=== PATIENT | male | born 1945 | race Caucasian/White ===

== ENCOUNTER → 2020-07-03 | Outpatient (CLI) | payer MEDICARE ==
[2020-07-03 11:02] LABS: African American GFR (CKD) >90 (>60 ml/min/1.73 sqM); Anion Gap 6 mmol/L; Basophils # (A) 0.1 k/uL (0-0.2); Basophils % (A) 1 %; Blood Urea Nitrogen 14 mg/dL (9-20); Calcium 9.1 mg/dL (8.4-10.2); Carbon Dioxide 27 mmol/L (22-30); Chloride 105 mmol/L (98-107); Eosinophils # (A) 0.7 k/uL (0-0.7); Eosinophils % (A) 6 %; Glucose 100 mg/dL (74-99); HCT 44.5 % (39.0-53.0); HGB 14.1 gm/dL (13.0-17.5); Lymphocytes # (A) 2.2 k/uL (1.0-4.8); Lymphocytes % (A) 19 %; MCH 29.4 pg (25.0-35.0); MCHC 31.6 g/dL (31.0-37.0); Mean Platelet Volume 8.6; Monocytes # (A) 0.9 k/uL (0-1.0); Monocytes % (A) 7 %; Neutrophils # (A) 7.7 k/uL (1.3-7.7); Neutrophils % (A) 65 %; Non-African American GFR(CKD) >90 (>60 ml/min/1.73 sqM); Platelet Count 285 k/uL (150-450); Potassium 4.2 mmol/L (3.5-5.1); RBC 4.79 m/uL (4.30-5.90); RDW 13.2 % (11.5-15.5); Sodium 138 mmol/L (137-145); WBC 11.8 k/uL (3.8-10.6)
== END | disposition home or self-care (01) ==
LOC: LABPAT 09:53
PROVIDERS: ATTEND Urology
DX: Z01.818 Encounter for other preprocedural examination (principal); E11.9 Type 2 diabetes mellitus without complications; C61 Malignant neoplasm of prostate
CPT/HCPCS: 36415; 80048; 85025

== ENCOUNTER → 2020-07-10 | Day surgery (SDC) | payer MEDICARE ==
[2020-07-04 12:33] VITALS: BMI 35.9
--- NOTE | 2020-07-07 16:01 | P.GSHP ---
History of Present Illness H&P Date: 07/07/20 Chief Complaint: Prostate cancer The patient is a 74-year-old white male whose PSA level in April 2020 was 5.2, down from 6.0 in September 2019. JASON revealed prominence of the right apical region. He underwent a prostate ultrasound, revealing a prostate volume of 43.5 mL. Biopsies of the right apex and right lateral apex showed [place] 7 (3+4) adenocarcinoma. The remaining biopsies were negative. The Prolaris score was 5.1, high for someone with favorable intermediate risk disease. I had a lengthy discussion with the patient and his regarding alternative treatment options, and he has elected to be treated with IMRT. We discussed the fact that androgen deprivation therapy (ADT) can improve cure rates, but in view of the fact that he has coronary artery disease and dementia he has chosen to precede with IMRT without ADT. - Gastrointestinal Gastrointestinal: Reports indigestion - Genitourinary (Male) Genitourinary: Reports urinary frequency - Neurological Neurological: Reports memory loss Past Medical History Past Medical History: Coronary Artery Disease (CAD), Cancer, COPD, Dementia, Diabetes Mellitus, GERD/Reflux, GI Bleed, Hypertension, Osteoarthritis (OA) Additional Past Medical History / Comment(s): hx of stomach ulcers with severe GI bleed, constipation, prostate cancer. Pt's states he loses his train of thought at times & mixes up his words. 06/26/20 tractor injury to right ankle with fx -surgery to clean and close wound; he is wearing a walking boot. History of Any Multi-Drug Resistant Organisms: None Reported Past Surgical History: Heart Catheterization With Stent Additional Past Surgical History / Comment(s): angioplasty, cardiac stent over 15 yrs ago ([facility]), Right Ankle injury with fx 06/26/20 and went to surgery to clean and close wound. Past Anesthesia/Blood Transfusion Reactions: No Reported Reaction Date of Last Stent Placement:: unk Past Psychological History: No Psychological Hx Reported Smoking Status: Former smoker Past Alcohol Use History: None Reported Additional Past Alcohol Use History / Comment(s): quit smoking age 40., smoked less than a ppd. Past Drug Use History: None Reported - Past Family History Father Family Medical History: Cancer Additional Family Medical History / Comment(s): lung cancer Brother(s) Family Medical History: Cancer Additional Family Medical History / Comment(s): 1 brother had prostate cancer. 2 nd brother unknown type of cancer Medications and Allergies Home Medications Medication Instructions Recorded Confirmed Type Atorvastatin [Lipitor] 20 mg PO DAILY 05/29/16 07/04/20 History Isosorbide Mononitrate ER [Imdur] 60 mg PO DAILY 05/29/16 07/04/20 History Metoprolol Tartrate [Lopressor] 50 mg PO DAILY 05/29/16 07/04/20 History Sucralfate [Carafate] 1 gm PO ACHS 05/29/16 07/04/20 History Lisinopril [Zestril] 10 mg PO DAILY 07/04/20 07/04/20 History Nitroglycerin Sl Tabs [Nitrostat] 0.4 mg SUBLINGUAL Q5M PRN 07/04/20 07/04/20 History Omeprazole/Sodium Bicarbonate 1 each PO DAILY 07/04/20 07/04/20 History [Zegerid 20 mg Capsule] Psyllium Husk [Metamucil] 2 cap PO DAILY 07/04/20 07/04/20 History glipiZIDE [Glucotrol] 5 mg PO AC-BRKFST 07/04/20 07/04/20 History Allergies Allergy/AdvReac Type Severity Reaction Status Date / Time clopidogrel [From Plavix] AdvReac Unknown HX Verified 07/04/20 12:29 BLEEDING ULCERS NSAIDS (Non-Steroidal AdvReac HX Verified 07/04/20 12:29 Anti-Inflamma BLEEDING ULCERS-DOES NOT TAKE. Surgical - Exam - General well developed, well nourished, no distress - Respiratory normal respiratory effort - Abdomen Abdomen: soft, non tender, no guarding, no rigid, no rebound - Genitourinary normal penis with no external lesions, testicles non-tender - Rectum Rectum: normal sphincter tone, no masses, other (Prominent right prostatic apex) - Psychiatric oriented to time, oriented to person, oriented to place, speech is normal, memory intact Assessment and Plan (1) Malignant neoplasm of prostate Status: Acute Code(s): C61 - MALIGNANT NEOPLASM OF PROSTATE SNOMED Code(s): 749601047 Plan: The patient has elected to undergo SpaceOar implant on 07/10/2020. The procedure has been reviewed in detail with the patient and his . They understand that the rationale for this is to create separation between the prostate and rectum, thus reducing the risk of radiation proctitis. The material begins to breakdown 12-13 weeks following implant, and is reabsorbed by the body. Risks include anesthesia, bleeding, infection, and perineal discomfort. He understands that if the rectal wall is perforated the procedure will need to be aborted.
[~2020-07-10] MED LIST: DEXAMETHASONE SOD PHOSPHATE 10 MG/ML 1 ML VIAL IV ONE; HYDROmorphone 0.5 MG/0.5 ML SYRINGE IVP PRN; LACTATED RINGERS 1,000 ML IV ONE; LACTATED RINGERS 1,000 ML IV SCH; LIDOCAINE 1% (10MG/ML) FOR IV START INTRADERMA PRN; LIDOCAINE 2% (PF) 20 MG/ML 5 ML VIAL SQ ONE; LIDOCAINE 2% INJ 20 MG/ML SQ ONE; MIDAZOLAM 2 MG/2 ML VIAL ONE; ONDANSETRON 4 MG/2 ML VIAL IVP ONE; ONDANSETRON 4 MG/2 ML VIAL ONE; PROPOFOL 10 MG/ML 20 ML VIAL IV ONE; fentaNYL (PF) 50 MCG/ML 2 ML AMP ONE
[2020-07-10 07:17] LABS: Glucose,Whole Blood 110 mg/dL (75-99)
[2020-07-10 08:30] VITALS: TEMP 98.6
--- NOTE | 2020-07-10 08:33 | P.OP ---
Date of Procedure: 07/10/20 Preoperative Diagnosis: Prostate cancer Postoperative Diagnosis: Same Procedure(s) Performed: SpaceOar Implant Anesthesia: MAC Surgeon: William Ramirez Estimated Blood Loss (ml): 10 IV fluids (ml): 800 Pathology: none sent Condition: stable Disposition: PACU Indications for Procedure: The patient is a 74-year-old white male whose PSA level in April 2020 was 5.2, down from 6.0 in September 2019. JASON revealed prominence of the right apical region. He underwent a prostate ultrasound, revealing a prostate volume of 43.5 mL. Biopsies of the right apex and right lateral apex showed [place] 7 (3+4) adenocarcinoma. The remaining biopsies were negative. The Prolaris score was 5.1, high for someone with favorable intermediate risk disease. I had a lengthy discussion with the patient and his regarding alternative treatment options, and he has elected to be treated with IMRT. We discussed the fact that androgen deprivation therapy (ADT) can improve cure rates, but in view of the fact that he has coronary artery disease and dementia he has chosen to precede with IMRT without ADT. Operative Findings: Somewhat less than desired space created between prostate and rectum. Description of Procedure: The patient was taken to the operating room and placed in the dorsolithotomy position, with his legs supported in Solitario stirrups. The external genitalia was prepped and draped sterilely. The Bruel and Kjaer transrectal ultrasound probe was placed intrarectally. The prostate was imaged. The probe was then placed within the stabilizing stand. A spinal needle was advanced under ultrasonic guidance to the level of the urogenital diaphragm, and lidocaine was used to infiltrate the tissues as the needle was withdrawn. Next, the SpaceOAR needle was passed through the midline of the perineum, 1-2 cm anterior to the anal opening. The needle was slowly advanced under ultrasonic guidance until the needle tip was located within the fat plane between the prostate and rectum, at the level of the mid prostate gland. The needle was confirmed to be midline on the axial imaging. A small amount of normal saline was injected for hydrodissection. Next, the SpaceOAR components were mixed and loaded into the Y connector per protocol. The Y connector was then connected to the needle, and the components were injected slowly over a course of approximately 12 seconds. A total of 10 ml was injected. Some distance was created between the prostate and rectum, somewhat less than desired. It should be noted that at no point was there any concern of rectal perforation. The needle was withdrawn, as well as the transrectal ultrasound probe, and the procedure was terminated. The patient tolerated the procedure well and was taken to the recovery room in stable condition.
[2020-07-10 08:34] LABS: Glucose,Whole Blood 95 mg/dL (75-99)
[2020-07-10 09:11] VITALS: PULSE 50
[2020-07-10 09:25] VITALS: BP 150/74; RESP 20
== END | disposition home or self-care (01) ==
LOC: OR 06:24
PROVIDERS: ATTEND Urology
DX: C61 Malignant neoplasm of prostate (principal); I10 Essential (primary) hypertension; I25.10 Atherosclerotic heart disease of native coronary artery without angina pectoris; J44.9 Chronic obstructive pulmonary disease, unspecified; E11.9 Type 2 diabetes mellitus without complications; K21.9 Gastro-esophageal reflux disease without esophagitis; F03.90 Unspecified dementia, unspecified severity, without behavioral disturbance, psychotic disturbance, mood disturbance, and anxiety; M19.90 Unspecified osteoarthritis, unspecified site; Z95.5 Presence of coronary angioplasty implant and graft; Z88.6 Allergy status to analgesic agent; Z88.8 Allergy status to other drugs, medicaments and biological substances; Z79.899 Other long term (current) drug therapy; Z79.84 Long term (current) use of oral hypoglycemic drugs; Z98.890 Other specified postprocedural states; Z87.11 Personal history of peptic ulcer disease; Z87.891 Personal history of nicotine dependence; Z80.1 Family history of malignant neoplasm of trachea, bronchus and lung; Z80.42 Family history of malignant neoplasm of prostate
CPT/HCPCS: 55874; J2001; J2250; J0690; J2405; J3010; J2704

== ENCOUNTER 2021-07-05 04:31 | Inpatient (IN) | payer MEDICARE ==
[2021-07-05] MEDS ORDERED: SODIUM CHLORIDE 0.9% 1,000 ML IV STA (04:38)
--- NOTE | 2021-07-05 04:38 | ED ---
Recheck HPI - General Stated Complaint: Chest Pain Time Seen by Provider: 07/05/21 04:34 Source: RN notes reviewed, old records reviewed Mode of arrival: EMS Limitations: no limitations - History of Present Illness Initial Comments: This is a 75-year-old male to the ER for evaluation history of heart disease and is follow-up with cardiology at our hospital patient comes in transfer patient for chest pain. Patient is having persistent chest pain upon arrival. No recent fever cough or congestion denies any other significant complaint MD Complaint: abnormal lab (Elevated troponin), other (Persistent chest pain) -: hour(s) Returns Today for: persistent/worsening pain related to initial visit Symptoms Since Prior Visit: worsening pain Associated Symptoms: chest pain, shortness of breath Treatments Prior to Arrival: other medications, Given Pain Meds on - Related Data Home Medications Medication Instructions Recorded Confirmed Atorvastatin [Lipitor] 20 mg PO DAILY 05/29/16 07/04/20 Isosorbide Mononitrate ER [Imdur] 60 mg PO DAILY 05/29/16 07/04/20 Metoprolol Tartrate [Lopressor] 50 mg PO DAILY 05/29/16 07/04/20 Sucralfate [Carafate] 1 gm PO ACHS 05/29/16 07/04/20 Lisinopril [Zestril] 10 mg PO DAILY 07/04/20 07/04/20 Nitroglycerin Sl Tabs [Nitrostat] 0.4 mg SUBLINGUAL Q5M PRN 07/04/20 07/04/20 Omeprazole/Sodium Bicarbonate 1 each PO DAILY 07/04/20 07/04/20 [Zegerid 20 mg Capsule] Psyllium Husk [Metamucil] 2 cap PO DAILY 07/04/20 07/04/20 glipiZIDE [Glucotrol] 5 mg PO AC-BRKFST 07/04/20 07/04/20 Allergies Allergy/AdvReac Type Severity Reaction Status Date / Time clopidogrel [From Plavix] AdvReac Unknown HX Verified 07/05/21 04:41 BLEEDING ULCERS NSAIDS (Non-Steroidal AdvReac HX Verified 07/05/21 04:41 Anti-Inflamma BLEEDING ULCERS-DOES NOT TAKE. Review of Systems ROS Statement: Those systems with pertinent positive or pertinent negative responses have been documented in the HPI. ROS Other: All systems not noted in ROS Statement are negative. Past Medical History Past Medical History: Coronary Artery Disease (CAD), Hypertension Additional Past Medical History / Comment(s): stomach ulcers History of Any Multi-Drug Resistant Organisms: None Reported Past Surgical History: Heart Catheterization With Stent Additional Past Surgical History / Comment(s): angioplasty Past Anesthesia/Blood Transfusion Reactions: No Reported Reaction Date of Last Stent Placement:: unk Past Psychological History: No Psychological Hx Reported Past Alcohol Use History: None Reported Past Drug Use History: None Reported General Exam General appearance: alert, in no apparent distress Head exam: Present: atraumatic, normocephalic, normal inspection Eye exam: Present: normal appearance, PERRL, EOMI. Absent: scleral icterus, conjunctival injection, periorbital swelling ENT exam: Present: normal exam, mucous membranes moist Neck exam: Present: normal inspection. Absent: tenderness, meningismus, lymphadenopathy Respiratory exam: Present: normal lung sounds bilaterally. Absent: respiratory distress, wheezes, rales, rhonchi, stridor Cardiovascular Exam: Present: regular rate, normal rhythm, normal heart sounds. Absent: systolic murmur, diastolic murmur, rubs, gallop, clicks GI/Abdominal exam: Present: soft, normal bowel sounds. Absent: distended, tenderness, guarding, rebound, rigid Extremities exam: Present: normal inspection, full ROM, normal capillary refill. Absent: tenderness, pedal edema, joint swelling, calf tenderness Back exam: Present: normal inspection Neurological exam: Present: alert, oriented X3, CN II-XII intact Psychiatric exam: Present: normal affect, normal mood Skin exam: Present: warm, dry, intact, normal color. Absent: rash Course Vital Signs 07/05/21 04:41 Temperature 98.1 F Pulse Rate 63 Respiratory 16 Rate Blood Pressure 164/94 O2 Sat by Pulse 100 Oximetry - Reevaluation(s) Reevaluation #1: 07/05/21 06:11 Medical record is reviewed Reevaluation #2: 07/05/21 06:11 Patient still remains episodic chest pain here in the ER Reevaluation #3: 07/05/21 06:11 Patient informed of results and questions answered - Consultations Consultation #1: Spoke with EM to agrees to admit this patient Medical Decision Making - Medical Decision Making 75 male to the ER for evaluation accepted in transfer for elevated troponin chest pain. Patient is acute coronary syndrome with non-STEMI. Patient be admitted to continue anticoagulation cardiology to see - Lab Data Result diagrams: 07/05/21 04:54 07/05/21 04:54 Lab Results 07/05/21 07/05/21 07/05/21 Range/Units 04:54 04:54 04:54 WBC 9.7 (3.8-10.6) k/uL RBC 4.59 (4.30-5.90) m/uL Hgb 14.2 (13.0-17.5) gm/dL Hct 42.7 (39.0-53.0) % MCV 93.0 (80.0-100.0) fL MCH 31.0 (25.0-35.0) pg MCHC 33.4 (31.0-37.0) g/dL RDW 14.1 (11.5-15.5) % Plt Count 204 (150-450) k/uL MPV 9.2 Neutrophils % 66 % Lymphocytes % 15 % Monocytes % 8 % Eosinophils % 7 % Basophils % 1 % Neutrophils # 6.4 (1.3-7.7) k/uL Lymphocytes # 1.4 (1.0-4.8) k/uL Monocytes # 0.8 (0-1.0) k/uL Eosinophils # 0.7 (0-0.7) k/uL Basophils # 0.1 (0-0.2) k/uL PT 10.5 (9.0-12.0) sec INR 1.0 (<1.2) APTT 50.8 H (22.0-30.0) sec Sodium (137-145) mmol/L Potassium (3.5-5.1) mmol/L Chloride (98-107) mmol/L Carbon Dioxide (22-30) mmol/L Anion Gap mmol/L BUN (9-20) mg/dL Creatinine (0.66-1.25) mg/dL Est GFR (CKD-EPI)AfAm (>60 ml/min/1.73 sqM) Est GFR (CKD-EPI)NonAf (>60 ml/min/1.73 sqM) Glucose (74-99) mg/dL Calcium (8.4-10.2) mg/dL Phosphorus (2.5-4.5) mg/dL Magnesium (1.6-2.3) mg/dL Total Bilirubin (0.2-1.3) mg/dL AST (17-59) U/L ALT (4-49) U/L Alkaline Phosphatase (38-126) U/L Creatine Kinase (55-170) U/L NT-Pro-B Natriuret Pep pg/mL Total Protein (6.3-8.2) g/dL Albumin (3.5-5.0) g/dL Urine Color Yellow Urine Appearance Clear (Clear) Urine pH 5.5 (5.0-8.0) Ur Specific [place] 1.027 (1.001-1.035) Urine Protein Trace H (Negative) Urine Glucose (UA) Negative (Negative) Urine Ketones Negative (Negative) Urine Blood Negative (Negative) Urine Nitrite Negative (Negative) Urine Bilirubin Negative (Negative) Urine Urobilinogen 2.0 (<2.0) mg/dL Ur Leukocyte Esterase Negative (Negative) 07/05/21 07/05/21 Range/Units 04:54 04:54 WBC (3.8-10.6) k/uL RBC (4.30-5.90) m/uL Hgb (13.0-17.5) gm/dL Hct (39.0-53.0) % MCV (80.0-100.0) fL MCH (25.0-35.0) pg MCHC (31.0-37.0) g/dL RDW (11.5-15.5) % Plt Count (150-450) k/uL MPV Neutrophils % % Lymphocytes % % Monocytes % % Eosinophils % % Basophils % % Neutrophils # (1.3-7.7) k/uL Lymphocytes # (1.0-4.8) k/uL Monocytes # (0-1.0) k/uL Eosinophils # (0-0.7) k/uL Basophils # (0-0.2) k/uL PT (9.0-12.0) sec INR (<1.2) APTT (22.0-30.0) sec Sodium 138 (137-145) mmol/L Potassium 4.2 (3.5-5.1) mmol/L Chloride 107 (98-107) mmol/L Carbon Dioxide 24 (22-30) mmol/L Anion Gap 7 mmol/L BUN 20 (9-20) mg/dL Creatinine 0.63 L (0.66-1.25) mg/dL Est GFR (CKD-EPI)AfAm >90 (>60 ml/min/1.73 sqM) Est GFR (CKD-EPI)NonAf >90 (>60 ml/min/1.73 sqM) Glucose 124 H (74-99) mg/dL Calcium 9.4 (8.4-10.2) mg/dL Phosphorus 3.9 (2.5-4.5) mg/dL Magnesium 1.8 (1.6-2.3) mg/dL Total Bilirubin 0.6 (0.2-1.3) mg/dL AST 26 (17-59) U/L ALT 16 (4-49) U/L Alkaline Phosphatase 107 (38-126) U/L Creatine Kinase 97 (55-170) U/L NT-Pro-B Natriuret Pep 650 pg/mL Total Protein 6.3 (6.3-8.2) g/dL Albumin 3.6 (3.5-5.0) g/dL Urine Color Urine Appearance (Clear) Urine pH (5.0-8.0) Ur Specific [place] (1.001-1.035) Urine Protein (Negative) Urine Glucose (UA) (Negative) Urine Ketones (Negative) Urine Blood (Negative) Urine Nitrite (Negative) Urine Bilirubin (Negative) Urine Urobilinogen (<2.0) mg/dL Ur Leukocyte Esterase (Negative) - EKG Data -: EKG Interpreted by Me (EKG shows sinus bradycardia 58 VT 158 QRS 92 QTC 439) Critical Care Time Critical Care Time: Yes Total Critical Care Time: 31 Disposition Clinical Impression: Chest pain, Acute non-ST elevation myocardial infarction (NSTEMI) Disposition: ADMITTED IP TO THIS HOSP Condition: Serious Is patient prescribed a controlled substance at d/c from ED?: No Referrals: Sheila Huang DO [Primary Care Provider] - 1-2 days
[2021-07-05 05:21] LABS: Basophils # (A) 0.1 k/uL (0-0.2); Basophils % (A) 1 %; Eosinophils # (A) 0.7 k/uL (0-0.7); Eosinophils % (A) 7 %; HCT 42.7 % (39.0-53.0); HGB 14.2 gm/dL (13.0-17.5); Lymphocytes # (A) 1.4 k/uL (1.0-4.8); Lymphocytes % (A) 15 %; MCHC 33.4 g/dL (31.0-37.0); Mean Platelet Volume 9.2; Monocytes # (A) 0.8 k/uL (0-1.0); Monocytes % (A) 8 %; Neutrophils # (A) 6.4 k/uL (1.3-7.7); Neutrophils % (A) 66 %; Platelet Count 204 k/uL (150-450); RBC 4.59 m/uL (4.30-5.90); RDW 14.1 % (11.5-15.5); WBC 9.7 k/uL (3.8-10.6)
[2021-07-05] MEDS: HEPARIN SOD,PORK IN 0.45% NACL 25,000 UNIT in 0.45% NACL 1 250ML.BAG IV SCH (05:22)
[2021-07-05 05:24] LABS: Appearance,Urine Clear (Clear); Bilirubin,Urine Negative (Negative); Blood,Urine Negative (Negative); Color,Urine Yellow; Glucose,Urine (UA) Negative (Negative); Ketones,Urine Negative (Negative); Leukocyte Esterase,Urine Negative (Negative); Nitrite,Urine Negative (Negative); PH, Urine 5.5 (5.0-8.0); Protein,Urine Trace (Negative); Specific Gravity,Urine 1.027 (1.001-1.035)
[2021-07-05 05:41] LABS: Partial Thromboplastin Time 50.8 sec (22.0-30.0); Prothrombin Time 10.5 sec (9.0-12.0)
[2021-07-05 06:03] LABS: ALT 16 U/L (4-49); AST 26 U/L (17-59); African American GFR (CKD) >90 (>60 ml/min/1.73 sqM); Albumin 3.6 g/dL (3.5-5.0); Alkaline Phosphatase 107 U/L (38-126); Anion Gap 7 mmol/L; Blood Urea Nitrogen 20 mg/dL (9-20); Calcium 9.4 mg/dL (8.4-10.2); Carbon Dioxide 24 mmol/L (22-30); Chloride 107 mmol/L (98-107); Creatine Kinase 97 U/L (55-170); Glucose 124 mg/dL (74-99); Magnesium 1.8 mg/dL (1.6-2.3); Non-African American GFR(CKD) >90 (>60 ml/min/1.73 sqM); Phosphorus 3.9 mg/dL (2.5-4.5); Potassium 4.2 mmol/L (3.5-5.1); Sodium 138 mmol/L (137-145); Total Bilirubin 0.6 mg/dL (0.2-1.3); Total Protein 6.3 g/dL (6.3-8.2)
[2021-07-05] MEDS ORDERED: MORPHINE SULFATE 4 MG/ML SYRINGE IV PRN (06:09)
[2021-07-05] MEDS ORDERED: NITROGLYCERIN SL TABS 0.4 MG TAB SUBLINGUAL PRN ×3 (06:09→10:04)
[2021-07-05] MEDS ORDERED: HEPARIN SODIUM,PORCINE 10,000 UNIT in SODIUM CHLORIDE 0.9% 1,000 ML IRRIGATION PRN (07:00)
[2021-07-05] MEDS ORDERED: HEPARIN SODIUM,PORCINE 2,500 UNIT in SODIUM CHLORIDE 0.9% 250 ML IRRIGATION PRN (07:00)
[2021-07-05] MEDS ORDERED: SODIUM CHLORIDE 0.9% 1,000 ML in EMPTY BAG 1 BAG IV ONE ×2 (09:37→10:04)
--- NOTE | 2021-07-05 09:56 | P.CRDCN ---
History of Present Illness Consult date: 07/05/21 Consult reason: chest pain History of present illness: The patient is a 75-year-old male who presented to the emergency room with new onset of chest discomfort. The patient states he woke up in the middle the night with chest pain which radiated to his neck and jaw. He initially presented to [facility] where he was found to have ramone-lateral ST changes with elevated troponins. He was subsequently transferred to [facility] for escalation of care. He is currently chest pain-free with his at the bedside. He states he remains active, doing work around his yard and in his garage. He denied any chest pain or chest pressure yesterday when active. The patient does follow with Dr. Morales in the office and had stents many years back. He has a history of gastric ulcers, therefore he has not been on antiplatelet therapy. DIAGNOSTICS: Initial EKG to [facility] shows anteroseptal ischemia with ST elevation in aVR and aVL and depression in V4 through V6 Laboratory data: WBC 9.7, hemoglobin 14.2, hematocrit 42.7, platelet 204, sodium 138, potassium 4.2, BUN 20, creatinine 0.63, magnesium 1.8, AST 26, ALT 16, troponin 0.4, BNP 650 Vital signs: Temp 98.1F, pulse 63, respiratory rate 16, blood pressure 164/94, SpO2 100% on 2 L nasal cannula PAST MEDICAL HISTORY: Coronary artery disease, hypertension, dementia, gastric ulcers, prostate cancer, COPD REVIEW OF SYSTEMS: No fever or chills. No cough or expectoration. No diaphoresis. Patient denies headache, dizziness, blurred vision, double vision. Patient denies any stomach discomfort. No nausea, vomiting. No hematochezia. No hematemesis. Denies any black stools or blood in his stools. Denies dysuria or hematuria. No muscle weakness or numbness. Positive for chest pain with radiation to the neck. No dyspnea. No palpitations PHYSICAL EXAMINATION: This is a 75-year-old L in no apparent distress at the time of my examination. HEENT: Head is atraumatic, normocephalic. Pupils are equal, round. Sclerae anicteric. Conjunctivae are clear. Mucous membranes of the mouth are moist. Neck is supple. There is no jugular venous distention. No carotid bruit is heard. CHEST EXAMINATION: Fine crackles in the bases. No chest wall tenderness is noted on palpation or with deep breathing. HEART EXAMINATION: Heart regular rate and rhythm. S1, S2 heard. No murmurs, gallops or rub. ABDOMEN: Soft, nontender. Bowel sounds are heard. No organomegaly noted. EXTREMITIES: 2+ peripheral pulses and no calf tenderness noted. +2 edema on the right and +1 edema on the left NEUROLOGIC EXAMINATION: Patient is awake, alert and oriented x3. FINAL ASSESSMENT AND PLAN: ST elevation myocardial infarction, mildly elevated troponin with rise and fall pattern History of coronary artery disease, prior stenting approximately 15 years prior History of hypertension History of diabetes Dementia History of gastric ulcers, bleeding on clopidogrel Sinus bradycardia PLAN: Continue heparin drip Proceed with coronary angiogram Continue statin therapy The patient has been seen and evaluated. Plan of care has been reviewed and agreed upon by Dr Frias. Past Medical History Past Medical History: Coronary Artery Disease (CAD), Hypertension Additional Past Medical History / Comment(s): stomach ulcers History of Any Multi-Drug Resistant Organisms: None Reported Past Surgical History: Heart Catheterization With Stent Additional Past Surgical History / Comment(s): angioplasty Past Anesthesia/Blood Transfusion Reactions: No Reported Reaction Date of Last Stent Placement:: unk Past Psychological History: No Psychological Hx Reported Past Alcohol Use History: None Reported Past Drug Use History: None Reported Medications and Allergies Home Medications Medication Instructions Recorded Confirmed Type Atorvastatin [Lipitor] 20 mg PO DAILY 05/29/16 07/05/21 History Isosorbide Mononitrate ER [Imdur] 60 mg PO DAILY 05/29/16 07/05/21 History Sucralfate [Carafate] 1 gm PO ACHS 05/29/16 07/05/21 History Lisinopril [Zestril] 10 mg PO DAILY 07/04/20 07/05/21 History Nitroglycerin Sl Tabs [Nitrostat] 0.4 mg SL Q5M PRN 07/04/20 07/05/21 History Omeprazole/Sodium Bicarbonate 1 cap PO DAILY 07/04/20 07/05/21 History [Zegerid 20 mg Capsule] glipiZIDE [Glucotrol] 2.5 mg PO AC-BRKFST 07/04/20 07/05/21 History Donepezil [Aricept] 10 mg PO DAILY 07/05/21 07/05/21 History Tamsulosin [Flomax] 0.8 mg PO DAILY 07/05/21 07/05/21 History Allergies Allergy/AdvReac Type Severity Reaction Status Date / Time clopidogrel [From Plavix] AdvReac Unknown HX Verified 07/05/21 09:14 BLEEDING ULCERS NSAIDS (Non-Steroidal AdvReac HX Verified 07/05/21 09:14 Anti-Inflamma BLEEDING ULCERS-DOES NOT TAKE. Physical Exam Vitals: Vital Signs Temp Pulse Resp BP Pulse Ox 07/05/21 04:41 98.1 F 63 16 164/94 100 Intake and Output 07/04/21 07/05/21 07/05/21 22:59 06:59 14:59 Other: Weight 111.13 kg Results 07/05/21 04:54 07/05/21 04:54 Cardiac Enzymes 07/05/21 07/05/21 Range/Units 04:54 04:54 AST 26 (17-59) U/L Troponin I 0.402 H* (0.000-0.034) ng/mL Coagulation 07/05/21 07/05/21 Range/Units 04:54 08:42 PT 10.5 (9.0-12.0) sec APTT 50.8 H 41.3 H (22.0-30.0) sec CBC 07/05/21 Range/Units 04:54 WBC 9.7 (3.8-10.6) k/uL RBC 4.59 (4.30-5.90) m/uL Hgb 14.2 (13.0-17.5) gm/dL Hct 42.7 (39.0-53.0) % Plt Count 204 (150-450) k/uL Comprehensive Metabolic Panel 07/05/21 Range/Units 04:54 Sodium 138 (137-145) mmol/L Potassium 4.2 (3.5-5.1) mmol/L Chloride 107 (98-107) mmol/L Carbon Dioxide 24 (22-30) mmol/L BUN 20 (9-20) mg/dL Creatinine 0.63 L (0.66-1.25) mg/dL Glucose 124 H (74-99) mg/dL Calcium 9.4 (8.4-10.2) mg/dL AST 26 (17-59) U/L ALT 16 (4-49) U/L Alkaline Phosphatase 107 (38-126) U/L Total Protein 6.3 (6.3-8.2) g/dL Albumin 3.6 (3.5-5.0) g/dL Current Medications Generic Name Dose Route Start Last Admin Trade Name Freq PRN Reason Stop Dose Admin Aspirin 325 mg 07/06/21 09:00 Aspirin 325 Mg Tab PO DAILY NIKKY Sodium Chloride 1,000 mls @ 130 mls/hr 07/05/21 04:38 07/05/21 05:25 Saline 0.9% IV 07/05/21 12:19 130 mls/hr .Q7H42M STA Administration Heparin Sodium/Sodium Chloride 250 mls @ 10.002 mls/hr 07/05/21 04:45 07/05/21 05:22 25,000 unit/ Sodium Chloride IV 9 units/kg/hr .Q24H NIKKY 10.002 mls/hr Administration Protocol 9 UNITS/KG/HR Morphine Sulfate 4 mg 07/05/21 06:09 Morphine Sulfate 4 Mg/Ml Syringe IV Q4HR PRN Chest Pain Nitroglycerin 0.4 mg 07/05/21 06:09 Nitroglycerin Sl Tabs 0.4 Mg Tab SUBLINGUAL Q5M PRN Chest Pain Intake and Output 07/04/21 07/05/21 07/05/21 22:59 06:59 14:59 Other: Weight 111.13 kg 07/05/21 04:54 07/05/21 04:54
[2021-07-05] MEDS ORDERED: ALPRAZolam 0.25 MG TAB PO PRN (10:04)
[2021-07-05] MEDS ORDERED: ATORVASTATIN 80 MG TAB PO STA (10:04)
[2021-07-05] MEDS ORDERED: ASPIRIN 325 MG TAB PO STA (10:04)
[2021-07-05] MEDS ORDERED: LIDOCAINE 1% INJ 10MG/ML (20 ML MDV) ONE (10:27)
[2021-07-05] MEDS ORDERED: VERAPAMIL 2.5 MG/ML 2 ML AMP ONE (10:27)
[2021-07-05] MEDS ORDERED: LIDOCAINE 1% INJ 10MG/ML (20 ML MDV) SQ ONE (10:42)
[2021-07-05] MEDS ORDERED: IV FLUID CONTINUATION 1,000 ML IV ONE (10:43)
[2021-07-05] MEDS ORDERED: MIDAZOLAM 2 MG/2 ML VIAL IV ONE (10:45)
[2021-07-05] MEDS ORDERED: VERAPAMIL SYRINGE (5 MG/10 ML) INTRAARTER ONE (10:45)
[2021-07-05] MEDS ORDERED: HEPARIN SODIUM 1,000 UN/ML (10ML VL) ONE (11:02)
[2021-07-05] MEDS ORDERED: IOPAMIDOL-370 125ML BTL INJ ONE (11:09)
[2021-07-05] MEDS ORDERED: CLOPIDOGREL 75 MG TAB ONE (11:37)
[2021-07-05] MEDS ORDERED: IOPAMIDOL-370 100ML BTL INJ ONE ×3 (11:38→12:23)
[2021-07-05] MEDS ORDERED: CLOPIDOGREL 75 MG TAB PO ONE (11:38)
[2021-07-05] MEDS ORDERED: NITROGLYCERIN SL TABS 0.4 MG TAB SUBLINGUAL ONE ×2 (11:51→12:00)
[2021-07-05] MEDS ORDERED: FUROSEMIDE 10 MG/ML 4 ML VIAL ONE (12:05)
[2021-07-05] MEDS ORDERED: FUROSEMIDE 10 MG/ML 4 ML VIAL IV ONE (12:07)
[2021-07-05] MEDS ORDERED: NITROGLYCERIN 1000MCG/10ML SYRINGE INTRACORON ONE (12:25)
[2021-07-05] MEDS ORDERED: TAMSULOSIN 0.4 MG CAP.ER.24H PO SCH (14:15)
[2021-07-05] MEDS: ATORVASTATIN 80 MG TAB PO SCH (14:48)
[2021-07-05] MEDS: METOPROLOL TARTRATE 12.5 MG TAB PO SCH (14:48)
--- NOTE | 2021-07-05 14:50 | CC ---
CARDIAC CATHETERIZATION REPORT DATE OF SERVICE: 07/05/2021. PROCEDURE: 1. Left heart catheterization and coronary angiography. 2. PTCA and stenting of an in-stent restenotic lesion involving the mid RCA with a drug-eluting stent. A technically difficult procedure. PERFORMED BY: Dr. Jose De Jesus Harris. Moderate conscious sedation time was 1 hour and 49 minutes. The patient was administered Versed. Oxygen saturation, hemodynamics and EKG were monitored closely. CLINICAL INFORMATION: Mr. Oakley is a 75-year-old gentleman with some dementia, hypertension, diabetes, hypercholesterolemia who also has CAD underwent stenting in the past. He used to see Dr. Morales about [address] Maurice, but has not seen a physician in the last year or so. He came into the hospital with chest pain, was seen and evaluated by Dr. Frias. He had ongoing chest pain and troponin elevation. He was advised cardiac cath after due discussion regarding risks, benefits and options. PROCEDURE NOTE: Under local anesthesia and strict aseptic precautions, a 6-Citizen Of [place] introducer was placed in the right radial artery. Using JR4 and JL3.5 catheters, I performed coronary angiography, and the same right catheter was used to check LV pressures. I noted the circumflex was totally occluded, had some collaterals. The RCA was a very dominant vessel, had a long area of disease in the mid portion within a previously placed stent, and this appeared to be the culprit lesion. LAD had moderate calcified disease but no significant stenosis and left main was free of significant disease. I proceeded to perform intervention of the RCA, which was a technically difficult procedure. Following the procedure, the sheath was taken out and a large TR band applied as per protocol. The saturation of the fingers of the right hand was 93%. Patient was sent to the room in stable condition. The details were discussed with the patient and his . CARDIAC CATHETERIZATION FINDINGS: The left ventricular end-diastolic pressure was 15 mmHg without any gradient across aortic valve. CORONARY ANGIOGRAPHY FINDINGS: RIGHT CORONARY ARTERY: This vessel appears to have had a previous stent placement in the proximal/mid portion. Very dominant vessel. It has a long area of 80% to 90% stenosis in the mid portion within the previously placed stent. Then the caliber improves and bifurcates into PDA and PLV. PLV has a 70% stenosis as it comes off and this is almost a bifurcation lesion. The PDA has a 30% to 40% narrowing. The RCA therefore is highly diseased with lesions in the mid portion within the stent and also in the PLV at its ostium. LEFT MAIN CORONARY ARTERY: Short, patent, disease-free vessel that bifurcates into LAD and circumflex. LEFT ANTERIOR DESCENDING CORONARY ARTERY: Good-caliber vessel extends along the anterior wall, gives off septal and diagonal branches. There is a 35% mid lesion. No significant stenosis. Moderate calcification distally and it curves over the apex to supply the inferoapical portion of the left ventricle. LEFT POSTERIOR CIRCUMFLEX CORONARY ARTERY: Nondominant vessel gives off a high obtuse marginal which has 80% stenosis, small-caliber vessel. Then circumflex is totally occluded after that. Late filling by collaterals from the left _to left____ collaterals were noted. Circumflex is nondominant, totally occluded after a small diseased obtuse marginal and distal late filling is noted. It appears to have good collaterals. LEFT VENTRICULOGRAM: Left ventriculogram was not performed. PCI PROCEDURE DETAILS: Getting a good guide catheter to cannulate the right coronary artery was somewhat difficult. I used an AL1 catheter, and with this I was able to get a decent guide support. A Whisper wire was used to cross the lesion and the wire was kept in the PLV branch. Predilatation was performed with a 3.0 caliber NC Trek balloon and I then deployed an initial stent of 3.5 caliber 12 mm length in the distal portion of the lesion right as it made the turn. This was deployed at 15 atmospheres. The mid area was stented with a 28 mm long 4.0 Xience stent. Even though I deployed this at 15 atmospheres, I could not open a portion which had a strong ring of calcium around it. Then I lost the guide support, and with great difficulty I was able to get back and get a decent guide support with an AL0.75, but again as I advanced the wire I tried to advance a noncompliant balloon. The guide came out. I had considerable difficulty, and eventually with an XB RCA guide catheter, I was able to get better guide support. I advanced 2 wires. One was a Whisper wire and one was a run-through wire. Over the Whisper wire, I advanced a 4.5 caliber NC Emerge balloon, and with this I dilated the mid portion within the stented segment. Within the 4.0 stent which I deployed, I used a 4.5 caliber NC Trek balloon of 12 mm length and gave a 16-atmosphere dilatation. There was modest improvement, but still I could see that it was not fully expanded. After multiple inflations, I decided to not pursue any more and explained to the patient that we have a good result, but I cannot get full expansion because of a heavy ring of calcium. The sheath was taken out and TR band applied as per protocol. Patient received intravenous heparin and ACT was kept between 250 and 300 on an average. The patient also received 600 mg of Plavix. The sheath was taken out and TR band applied as per protocol and he was sent to the room in a stable condition. Good angiographic result was achieved. Technically difficult procedure and heavy calcification precludes a full expansion of the stent, even though I went up to a 4.5 caliber noncompliant balloon at high atmospheres up to 16. Details were discussed with the patient. He was sent to the room in a stable condition with a good result free of chest pain and normal EKG. fara GORMAN / ROSIEN: [id number] / MTDSasha
--- NOTE | 2021-07-05 16:01 | ECHOF ---
Referral Reason:cath MEASUREMENTS -------- HEIGHT: 177.8 cm WEIGHT: 111.1 kg BP: IVSd: 1.6 cm (0.6 - 1.1) LVIDd: 4.0 cm (3.9 - 5.3) LVPWd: 1.9 cm (0.6 - 1.1) EDV(Teich): 70 ml IVSs: 2.7 cm LVIDs: 2.4 cm LVPWs: 2.2 cm %IVS Thck: 72 % ESV(Teich): 20 ml EF(Teich): 72 % %FS: 41 % SV(Teich): 51 ml RVIDd: 2.6 cm (< 3.3) Ao Diam: 4.1 cm (2.0 - 3.7) LA Diam: 3.8 cm (2.7 - 3.8) AV Cusp: 1.9 cm (1.5 - 2.6) EPSS: 1.2 cm MV E Delbert: 0.92 m/s MV DecT: 348 ms MV Dec [place]: 2.6 m/s MV A Delbert: 0.99 m/s MV E/A Ratio: 0.93 MV PHT: 101 ms MR Vmax: 2.13 m/s MR maxP.14 mmHg AV Vmax: 1.66 m/s AV maxP.07 mmHg AR Vmax: 1.73 m/s AR maxP.02 mmHg AR PHT: 806 ms AR Dec Time: 2781 ms AR Dec [place]: 0.6 m/s TR Vmax: 1.49 m/s TR maxP.89 mmHg RAP: 5.00 mmHg RVSP: 13.89 mmHg MV EF SLOPE: 18.32 mm/s (70 - 150) MV EXCURSION: 16.49 mm (> 18.000) FINDINGS -------- This was a technically difficult study with suboptimal views. The left ventricular size is normal. There is moderate concentric left ventricular hypertrophy. O verall left ventricular systolic function is mildly impaired with, an EF between 45 - 50 %. The right ventricle is normal in size. The left atrial size is normal. The right atrial size is normal. Lumason used Aortic valve is trileaflet and is mildly thickened. There is mild aortic valve sclerosis. There i s mild aortic regurgitation. The mitral valve is normal. Mild mitral regurgitation is present. The tricuspid valve appears structurally normal. Mild tricuspid regurgitation present. Right vent ricular systolic pressure is normal at < 35 mmHg. There is no pulmonic regurgitation present. The aortic root size is normal. IVC Not well visulized. There is no pericardial effusion. CONCLUSIONS -------- 1. The left ventricular size is normal. 2. There is moderate concentric left ventricular hypertrophy. 3. Overall left ventricular systolic function is mildly impaired with, an EF between 45 - 50 %. 4. Aortic valve is trileaflet and is mildly thickened. 5. There is mild aortic valve sclerosis. 6. There is mild aortic regurgitation. 7. Mild mitral regurgitation is present. 8. Mild tricuspid regurgitation present. 9. There is no pericardial effusion. RN PEDIATRIC: Genevieve Samuels RDCS
[2021-07-05 16:09] LABS: Glucose,Whole Blood 156 mg/dL (75-99)
[2021-07-05] MEDS: SUCRALFATE 1 GM TAB PO SCH ×2 (16:44→19:50)
[2021-07-05] MEDS ORDERED: RX INFO: IV CONTRAST WAS GIVEN 1 EACH MISC MISCELLANE PRN (17:00)
[2021-07-05] MEDS: lisinopriL 10 MG TAB PO SCH (19:50)
[2021-07-05] MEDS: ALPRAZolam 0.5 MG TAB PO PRN (19:50)
[2021-07-05 20:07] LABS: Glucose,Whole Blood 106 mg/dL (75-99)
[2021-07-05] MEDS: TAMSULOSIN 0.4 MG CAP.ER.24H PO SCH (21:40)
--- NOTE | 2021-07-06 00:16 | P.HPIM ---
History of Present Illness H&P Date: 07/05/21 Chief Complaint: Chest pain Mr. Oakley is a 75-year-old male with a past medical history of coronary artery disease status post stenting, hypertension coming in with a chief complaint of chest pain. Patient states that he woke up in the middle of the night with c hest pain that radiated to his neck and jaw, he presented to [facility] and was found to have elevated troponins and anterolateral ST changes so transferred to [facility] for further evaluation. Patient's at the bedside and provided most of the history. As per discussion with the patient had history of gastric ulcers and bleeding when he was taking aspirin and Plavix when he had stenting done in the past. Patient was also having associated nausea, sweating and felt slightly dizzy. Patient denied having any swelling of his lower extremities. No history of recent travel or sick contacts. Patient denies having any fevers chills or rigors. No abdominal pain nausea vomiting or diarrhea. No dysuria or hematuria. Patient denies having any headaches, blurring of vision, slurred speech or weakness of his extremities. In the ER at the time of admission patient had elevated troponins of 0. 402, started on heparin drip and cardiology was consulted. Patient was taken to the [facility] this afternoon and had restenting of the right coronary artery. He is currently lying in bed appears to be comfortable and is chest pain-free. Review of Systems REVIEW OF SYSTEMS: CONSTITUTIONAL: No fever, no malaise, no fatigue. HEENT: No headache, no neck stiffness, no blurring of vision CARDIOVASCULAR: As per HPI PULMONARY: No cough or difficulty in breathing GASTROINTESTINAL: No Abdominal pain nausea vomiting or diarrhea NEUROLOGICAL: No weakness of extremities HEMATOLOGICAL: Denies any bleeding or petechiae. GENITOURINARY: Denies any burning micturition, frequency, or urgency. MUSCULOSKELETAL/RHEUMATOLOGICAL: Denies any joint pain, swelling, or any muscle pain. ENDOCRINE: Denies polyuria polydipsia or heat or cold intolerance The rest of the 14-point review of systems is negative. Past Medical History Past Medical History: Coronary Artery Disease (CAD), Hypertension Additional Past Medical History / Comment(s): stomach ulcers History of Any Multi-Drug Resistant Organisms: None Reported Past Surgical History: Heart Catheterization With Stent Additional Past Surgical History / Comment(s): angioplasty Past Anesthesia/Blood Transfusion Reactions: No Reported Reaction Date of Last Stent Placement:: unk Past Psychological History: No Psychological Hx Reported Past Alcohol Use History: None Reported Past Drug Use History: None Reported Medications and Allergies Home Medications Medication Instructions Recorded Confirmed Type Atorvastatin [Lipitor] 20 mg PO DAILY 05/29/16 07/05/21 History Isosorbide Mononitrate ER [Imdur] 60 mg PO DAILY 05/29/16 07/05/21 History Sucralfate [Carafate] 1 gm PO ACHS 05/29/16 07/05/21 History Lisinopril [Zestril] 10 mg PO DAILY 07/04/20 07/05/21 History Nitroglycerin Sl Tabs [Nitrostat] 0.4 mg SL Q5M PRN 07/04/20 07/05/21 History Omeprazole/Sodium Bicarbonate 1 cap PO DAILY 07/04/20 07/05/21 History [Zegerid 20 mg Capsule] glipiZIDE [Glucotrol] 2.5 mg PO AC-BRKFST 07/04/20 07/05/21 History Donepezil [Aricept] 10 mg PO DAILY 07/05/21 07/05/21 History Tamsulosin [Flomax] 0.8 mg PO DAILY 07/05/21 07/05/21 History Allergies Allergy/AdvReac Type Severity Reaction Status Date / Time clopidogrel [From Plavix] AdvReac Unknown HX Verified 07/05/21 09:14 BLEEDING ULCERS NSAIDS (Non-Steroidal AdvReac HX Verified 07/05/21 09:14 Anti-Inflamma BLEEDING ULCERS-DOES NOT TAKE. Physical Exam Vitals: Vital Signs Temp Pulse Pulse Resp BP BP Pulse Ox 07/05/21 13:24 98 F 60 15 150/77 98 07/05/21 13:17 17 07/05/21 10:12 57 L 17 167/74 98 07/05/21 04:41 98.1 F 63 16 164/94 100 Intake and Output 07/05/21 07/05/21 07/05/21 06:59 14:59 22:59 Intake Total 500 Output Total 500 Balance -500 500 Intake: IV 200 Oral 300 Output: Urine 500 Other: Weight 111.13 kg PHYSICAL EXAMINATION: GENERAL: Comfortably lying up in the bed appears to be no acute distress. Elderly appearing HEENT: Pupils are round and equally reacting to light. EOMI. No scleral icterus. No conjunctival pallor. CARDIOVASCULAR: S1 and S2 present. No murmurs, rubs, or gallops. PULMONARY: Bilateral breath sounds positive. No wheeze or crackles.. ABDOMEN: Soft,non -tender, normal bowel sounds. No guarding or rigidity. MUSCULOSKELETAL: No joint swelling or deformity. EXTREMITIES: No edema NEUROLOGICAL: Gross neurological examination did not reveal any focal deficits. SKIN:No rash Results CBC & Chem 7: 07/05/21 04:54 07/05/21 04:54 Labs: Abnormal Lab Results - Last 24 Hours (Table) 07/05/21 07/05/21 07/05/21 Range/Units 04:54 04:54 04:54 APTT 50.8 H (22.0-30.0) sec Creatinine 0.63 L (0.66-1.25) mg/dL Glucose 124 H (74-99) mg/dL Troponin I (0.000-0.034) ng/mL Urine Protein Trace H (Negative) 07/05/21 07/05/21 Range/Units 04:54 08:42 APTT 41.3 H (22.0-30.0) sec Creatinine (0.66-1.25) mg/dL Glucose (74-99) mg/dL Troponin I 0.402 H* (0.000-0.034) ng/mL Urine Protein (Negative) Assessment and Plan Assessment: ASSESSMENT NSTEMI status post stenting of RCA History of coronary artery disease status post stent team done 15 years back Hypertension Diabetes mellitus History of dementia History of gastric ulcers while on antiplatelet therapy Sinus bradycardia Obesity with BMI of 33.2 PLAN: Patient had cardiac catheterization done and re-stenting of the right coronary artery this afternoon. He is chest pain-free currently. Patient has been started on Plavix and statin. Patient has been restarted on his home medications. We will repeat a.m. labs. Further recommendations to follow depending on the progress of the patient.
[2021-07-06] MEDS ORDERED: HALOPERIDOL LACTATE 5 MG/ML 1 ML VIAL IVP PRN (03:15)
[2021-07-06] MEDS: HEPARIN SOD,PORK IN 0.45% NACL 25,000 UNIT in 0.45% NACL 1 250ML.BAG IV SCH (06:16)
[2021-07-06 06:18] LABS: Glucose,Whole Blood 98 mg/dL (75-99)
[2021-07-06] MEDS: PANTOPRAZOLE 40 MG TABLET PO SCH (06:31)
[2021-07-06] MEDS: SUCRALFATE 1 GM TAB PO SCH ×4 (06:31→19:33)
[2021-07-06 08:04] LABS: Basophils # (A) 0.1 k/uL (0-0.2); Basophils % (A) 0 %; Eosinophils # (A) 0.5 k/uL (0-0.7); Eosinophils % (A) 4 %; HCT 41.7 % (39.0-53.0); HGB 13.6 gm/dL (13.0-17.5); Lymphocytes # (A) 1.1 k/uL (1.0-4.8); Lymphocytes % (A) 9 %; MCH 30.2 pg (25.0-35.0); MCHC 32.7 g/dL (31.0-37.0); MCV 92.4 fL (80.0-100.0); Monocytes # (A) 0.9 k/uL (0-1.0); Monocytes % (A) 7 %; Neutrophils % (A) 78 %; Platelet Count 235 k/uL (150-450); RBC 4.51 m/uL (4.30-5.90); RDW 13.8 % (11.5-15.5); WBC 12.8 k/uL (3.8-10.6)
[2021-07-06 08:12] LABS: African American GFR (CKD) >90 (>60 ml/min/1.73 sqM); Anion Gap 5 mmol/L; Blood Urea Nitrogen 14 mg/dL (9-20); Calcium 9.2 mg/dL (8.4-10.2); Carbon Dioxide 29 mmol/L (22-30); Chloride 105 mmol/L (98-107); Glucose 102 mg/dL (74-99); Non-African American GFR(CKD) >90 (>60 ml/min/1.73 sqM); Potassium 3.8 mmol/L (3.5-5.1); Sodium 139 mmol/L (137-145)
[2021-07-06] MEDS: ISOSORBIDE MONONITRATE ER 60 MG TAB.ER.24H PO SCH (08:20)
[2021-07-06] MEDS: METOPROLOL TARTRATE 12.5 MG TAB PO SCH (08:20)
[2021-07-06] MEDS: ASPIRIN 81 MG PO SCH (08:20)
[2021-07-06] MEDS: CLOPIDOGREL 75 MG TAB PO SCH (08:21)
[2021-07-06] MEDS: DONEPEZIL 10 MG TAB PO SCH (08:21)
[2021-07-06] MEDS: ATORVASTATIN 80 MG TAB PO SCH (08:21)
[2021-07-06] MEDS ORDERED: lisinopriL 10 MG TAB PO SCH (09:00)
[2021-07-06] MEDS ORDERED: ATORVASTATIN 80 MG TAB PO SCH (09:00)
[2021-07-06] MEDS ORDERED: ASPIRIN 325 MG TAB PO SCH (09:00)
--- NOTE | 2021-07-06 11:39 | P.PN ---
Subjective Progress Note Date: 07/06/21 The patient is a 75-year-old male with past medical history of coronary artery disease who presented to the hospital yesterday with non-ST elevated myocardial infarction. He subsequently underwent coronary angiogram where he received a stent to his mid RCA which was heavily calcified. He also had residual 35% lesion in his LAD. Echocardiogram revealed reduced ejection fraction of 45-50% with mild MR and mild TR. The patient was interviewed and examined lying comfortably in bed. He denies any chest pain or chest pressure since his cardiac cath yesterday. He states he has been up to the bathroom with assistance. No shortness of breath, heart racing or fluttering, dizziness or lightheadedness. He does have dementia, but does appear appropriate answering his review of systems. He states his will be here later this afternoon GENERAL: Well-appearing, well-nourished and in no acute distress. NECK: Supple without JVD or thyromegaly. LUNGS: Breath sounds clear to auscultation bilaterally. Respiration equal and unlabored. No wheezes, rales or rhonchi. HEART: Regular rate and rhythm without murmurs, rubs or gallops. S1 and S2 heard. EXTREMITIES: Normal range of motion, no edema. No clubbing or cyanosis. Peripheral pulses intact and strong. Right radial Site shows no evidence of bruising or hematoma. VITALS: Temp 98F, pulse 66, respiratory rate 16, blood pressure 157/60, SpO2 95% on room air TELEMETRY: Sinus bradycardia overnight with heart rate in the 50s LABS: WBC 12.8, hemoglobin 13.6, hematocrit 41.7, platelet 235, sodium 139, potassium 3.8, BUN 14, creatinine 0.62 IMPRESSION: Non-ST elevated myocardial infarction Coronary artery disease with mid RCA stenting Ischemic cardiomyopathy, mildly reduced EF at 45-50% Hypertension, uncontrolled History of diabetes History of gastric ulcers, prior bleeding on Plavix Sinus bradycardia PLAN: Discontinue metoprolol and start carvedilol for low ejection fraction and hypertension Lisinopril has already been doubled in dose since admission Continue antiplatelet therapy Encourage ambulation The patient has been seen and evaluated. Plan of care has been reviewed and agreed upon by Dr Frias. Objective - Vital Signs Vital signs: Vital Signs Temp 98 F 07/06/21 11:20 Pulse 66 07/06/21 11:20 Resp 16 07/06/21 11:20 BP 157/60 07/06/21 11:20 Pulse Ox 95 07/06/21 11:20 Intake & Output 07/05/21 07/06/21 07/06/21 18:59 06:59 18:59 Intake Total 740 240 Output Total 520 200 Balance 740 -520 40 Weight 111 kg Intake: IV 200 Oral 540 240 Output: Urine 520 200 Other: # Voids 3 - Labs CBC & Chem 7: 07/06/21 07:32 07/06/21 07:32 Labs: Abnormal Lab Results - Last 24 Hours (Table) 07/05/21 07/05/21 07/06/21 Range/Units 16:05 20:06 07:32 WBC 12.8 H (3.8-10.6) k/uL Neutrophils # 10.0 H (1.3-7.7) k/uL Creatinine (0.66-1.25) mg/dL Glucose (74-99) mg/dL POC Glucose (mg/dL) 156 H 106 H (75-99) mg/dL 07/06/21 Range/Units 07:32 WBC (3.8-10.6) k/uL Neutrophils # (1.3-7.7) k/uL Creatinine 0.62 L (0.66-1.25) mg/dL Glucose 102 H (74-99) mg/dL POC Glucose (mg/dL) (75-99) mg/dL
[2021-07-06 11:56] LABS: Glucose,Whole Blood 86 mg/dL (75-99)
[2021-07-06 12:37] LABS: Chol/HDL Ratio 2.88; Cholesterol 115 mg/dL (0-200); LDL Cholesterol,Calculated 61.8 mg/dL (0.0-131.0)
[2021-07-06 16:17] LABS: Glucose,Whole Blood 105 mg/dL (75-99)
[2021-07-06] MEDS: carvediloL 3.125 MG TAB PO SCH (17:09)
[2021-07-06] MEDS: TAMSULOSIN 0.4 MG CAP.ER.24H PO SCH (17:10)
[2021-07-06] MEDS: lisinopriL 10 MG TAB PO SCH (19:33)
[2021-07-06] MEDS: ALPRAZolam 0.5 MG TAB PO PRN (19:33)
[2021-07-06 20:37] LABS: Glucose,Whole Blood 112 mg/dL (75-99)
--- NOTE | 2021-07-07 00:08 | P.PN ---
Subjective Progress Note Date: 07/06/21 Principal diagnosis: NSTEMI Mr. Oakley is a 75-year-old male with a past medical history of coronary artery disease status post stenting, hypertension coming in with a chief complaint of chest pain. Patient states that he woke up in the middle of the night with ches t pain that radiated to his neck and jaw, he presented to [facility] and was found to have elevated troponins and anterolateral ST changes so transferred to [facility] for further evaluation. Patient's at the bedside and provided most of the history. As per discussion with the patient had history of gastric ulcers and bleeding when he was taking aspirin and Plavix when he had stenting done in the past. Patient was also having associated nausea, sweating and felt slightly dizzy. Patient denied having any swelling of his lower extremities. No history of recent travel or sick contacts. Patient denies having any fevers chills or rigors. No abdominal pain nausea vomiting or diarrhea. No dysuria or hematuria. Patient denies having any headaches, blurring of vision, slurred speech or weakness of his extremities. In the ER at the time of admission patient had elevated troponins of 0. 402, started on heparin drip and cardiology was consulted. Patient was taken to the [facility] yesterday and had restenting of the right coronary artery. On 07/06/2021 -patient is seen and examined at the bedside. He does not have any active complaints. No acute issues reported by nursing staff overnight. Patient has been up and about, took a shower this morning and denies having any chest pain or palpitations. He denies having any cough or difficulty in breathing. On reviewing his vitals temperature 98, heart rate 68, respiratory 16, blood pressure 155/68, saturating at 98% on room air. On reviewing his labs hemoglobin of 13.6, white count of 12.8, platelets of 235. Sodium 139, potassium 3.8, chloride 105, bicarb 29, BUN 14, creatinine 0.62. Patient medications have been reviewed. Objective - Vital Signs Vital signs: Vital Signs Temp 98 F 07/06/21 11:20 Pulse 66 07/06/21 12:37 Resp 16 07/06/21 12:37 BP 157/60 07/06/21 11:20 Pulse Ox 95 07/06/21 11:20 Intake & Output 07/05/21 07/06/21 07/06/21 18:59 06:59 18:59 Intake Total 740 240 Output Total 520 200 Balance 740 -520 40 Weight 111 kg Intake: IV 200 Oral 540 240 Output: Urine 520 200 Other: # Voids 3 - Exam PHYSICAL EXAMINATION: GENERAL: Comfortably lying up in the bed appears to be no acute distress. HEENT: Pupils are round and equally reacting to light. EOMI. No scleral icterus. No conjunctival pallor. CARDIOVASCULAR: S1 and S2 present. No murmurs, rubs, or gallops. PULMONARY: Bilateral breath sounds positive. No wheeze or crackles.. ABDOMEN: Soft,non -tender, normal bowel sounds. No guarding or rigidity. MUSCULOSKELETAL: No joint swelling or deformity. EXTREMITIES: No edema NEUROLOGICAL: Gross neurological examination did not reveal any focal deficits. SKIN:No rash - Labs CBC & Chem 7: 07/06/21 07:32 07/06/21 07:32 Labs: Abnormal Lab Results - Last 24 Hours (Table) 07/05/21 07/05/21 07/06/21 Range/Units 16:05 20:06 07:32 WBC 12.8 H (3.8-10.6) k/uL Neutrophils # 10.0 H (1.3-7.7) k/uL Creatinine (0.66-1.25) mg/dL Glucose (74-99) mg/dL POC Glucose (mg/dL) 156 H 106 H (75-99) mg/dL 07/06/21 Range/Units 07:32 WBC (3.8-10.6) k/uL Neutrophils # (1.3-7.7) k/uL Creatinine 0.62 L (0.66-1.25) mg/dL Glucose 102 H (74-99) mg/dL POC Glucose (mg/dL) (75-99) mg/dL Assessment and Plan Assessment: ASSESSMENT NSTEMI status post stenting of RCA History of coronary artery disease status post stent team done 15 years back Hypertension Diabetes mellitus History of dementia History of gastric ulcers while on antiplatelet therapy Sinus bradycardia Obesity with BMI of 33.2 PLAN: Patient had cardiac catheterization done and re-stenting of the right coronary artery this afternoon. He is chest pain-free currently. Patient has been started on Aspirin, Plavix and statin. As per discussion with his , patient has significant history of bleeding while on Plavix in the past. She states when he was on Plavix for 5 to 6 weeks patient had significant GI bleed. We will convey the message to cardiology who initiated these medications. We will repeat a.m. labs. Further recommendations to follow depending on the progress of the patient.
[2021-07-07 06:49] LABS: Glucose,Whole Blood 90 mg/dL (75-99)
[2021-07-07] MEDS: carvediloL 3.125 MG TAB PO SCH (06:49)
[2021-07-07] MEDS: PANTOPRAZOLE 40 MG TABLET PO SCH (06:49)
[2021-07-07] MEDS: SUCRALFATE 1 GM TAB PO SCH ×4 (06:50→22:59)
[2021-07-07] MEDS: lisinopriL 10 MG TAB PO SCH ×2 (09:00→11:28)
[2021-07-07] MEDS: ISOSORBIDE MONONITRATE ER 60 MG TAB.ER.24H PO SCH (09:00)
[2021-07-07] MEDS: ASPIRIN 81 MG PO SCH (09:00)
[2021-07-07] MEDS: ATORVASTATIN 80 MG TAB PO SCH (09:00)
[2021-07-07] MEDS: DONEPEZIL 10 MG TAB PO SCH (09:00)
[2021-07-07 11:34] LABS: Glucose,Whole Blood 65 mg/dL (75-99)
[2021-07-07 11:54] LABS: Glucose,Whole Blood 80 mg/dL (75-99)
--- NOTE | 2021-07-07 11:57 | P.PN ---
Subjective The patient is a 75-year-old male with a past medical history of coronary artery disease s/p PCI 15 years ago per patient, hypertension, diabetes, dementia who presented as a transfer from [facility] new onset of chest discomfort. He used to follow with Dr. Morales in the office. Patient states that he woke up in the middle the night with chest pain which radiated to his neck and jaw. He initially presented to [facility] where he was found to have ramone- lateral ST changes with elevated troponins. He was subsequently transferred to [facility] for escalation of care. Patient underwent cardiac catheterization with Dr. Harris on 07/05/21 which revealed 80-90% stenosis in the mid portion within the previously placed stent, PLV 70% stenosis, PDA 30-40% stenosis, LAD 35% mid lesion no significant stenosis, left circumflex high obtuse marginal has 80% stenosis, circumflex is totally occluded after that. Patient underwent successful stent to in-stent lesion of mid RCA. Echocardiogram revealed EF 45-50%, mild aortic valve regurgitation, mild mitral regurgitation, mild tricuspid regurgitation 07/07/21. Patient seen and examined at bedside, no acute distress. Sitting up in the chair. He denies any chest pain, shortness of breath, lightheadedness, dizziness. Blood pressure 160/75, platelets 63, afebrile, maintaining saturat ions on room air. Patient currently maintained on Aspirin 81mg daily, atorvastatin 80mg daily, Plavix 75mg daily, Imdur 60mg daily, Lisinopril 10mg BID. PHYSICAL EXAMINATION: This is a 75-year-old L in no apparent distress at the time of my examination. HEENT: Neck is supple. There is no jugular venous distention. CHEST EXAMINATION: Lungs are clear to auscultation bilaterally. HEART EXAMINATION: Heart regular rate and rhythm. S1, S2 heard. No murmurs, gallops or rub. ABDOMEN: Soft, nontender. Bowel sounds are heard. No organomegaly noted. EXTREMITIES: 2+ peripheral pulses and no calf tenderness noted. No edema SKIN: Right radial cath site, clean dry intact, 2+ pulses NEUROLOGIC EXAMINATION: Patient is awake, alert and oriented x3. FINAL ASSESSMENT AND PLAN: NSTEMI s/p PCI to RCA on 07/02 Ischemic cardiomyopathy History of coronary artery disease, prior stenting approximately 15 years prior History of hypertension History of diabetes Dementia History of gastric ulcers, bleeding on clopidogrel per patient's . PLAN: Continue dual antiplatelet therapy with aspirin and plavix Continue statin, Coreg 6.25mg BID , Lisinopril 20mg daily, and Imdur Will monitor patient today If patient is hemodynamically stable, most likely discharge tomorrow Patient to follow up outpatient with Dr. Morales. The patient has been seen and evaluated. Plan of care has been reviewed and agreed upon by Dr Frias. Objective - Vital Signs Vital signs: Vital Signs Temp 97.7 F 07/07/21 08:00 Pulse 70 07/07/21 08:00 Resp 18 07/07/21 08:00 BP 168/75 07/07/21 08:00 Pulse Ox 95 07/07/21 10:00 Intake & Output 07/06/21 07/07/21 07/07/21 18:59 06:59 18:59 Intake Total 480 480 Output Total 550 350 Balance -70 130 Weight 107.4 kg Intake: Oral 480 480 Output: Urine 550 350 Other: # Voids 1 2 # Bowel Movements 1 - Labs CBC & Chem 7: 07/06/21 07:32 07/06/21 07:32 Labs: Abnormal Lab Results - Last 24 Hours (Table) 07/06/21 07/06/21 Range/Units 16:16 20:10 POC Glucose (mg/dL) 105 H 112 H (75-99) mg/dL
[2021-07-07] MEDS: CLOPIDOGREL 75 MG TAB PO SCH (12:00)
[2021-07-07 16:37] LABS: Glucose,Whole Blood 90 mg/dL (75-99)
[2021-07-07] MEDS: TAMSULOSIN 0.4 MG CAP.ER.24H PO SCH (17:33)
[2021-07-07] MEDS: carvediloL 6.25 MG TAB PO SCH (17:34)
[2021-07-07 20:19] LABS: Glucose,Whole Blood 112 mg/dL (75-99)
[2021-07-08 06:10] LABS: Glucose,Whole Blood 98 mg/dL (75-99)
[2021-07-08] MEDS: SUCRALFATE 1 GM TAB PO SCH (06:48)
[2021-07-08] MEDS: carvediloL 6.25 MG TAB PO SCH (06:48)
[2021-07-08] MEDS: PANTOPRAZOLE 40 MG TABLET PO SCH (06:48)
[2021-07-08 08:12] VITALS: PULSE 66; RESP 16; TEMP 97.8
[2021-07-08] MEDS: DONEPEZIL 10 MG TAB PO SCH (08:13)
[2021-07-08] MEDS: ATORVASTATIN 80 MG TAB PO SCH (08:13)
[2021-07-08] MEDS: ASPIRIN 81 MG PO SCH (08:13)
[2021-07-08] MEDS: CLOPIDOGREL 75 MG TAB PO SCH (08:13)
[2021-07-08] MEDS: ISOSORBIDE MONONITRATE ER 60 MG TAB.ER.24H PO SCH (08:13)
[2021-07-08] MEDS ORDERED: lisinopriL 20 MG TAB PO SCH (09:00)
--- NOTE | 2021-07-08 11:10 | P.PN ---
Subjective The patient is a 75-year-old male with a past medical history of coronary artery disease s/p PCI 15 years ago per patient, hypertension, diabetes, dementia who presented as a transfer from [facility] new onset of chest discomfort. He used to follow with Dr. Morales in the office. Patient states that he woke up in the middle the night with chest pain which radiated to his neck and jaw. He initially presented to [facility] where he was found to have ramone- lateral ST changes with elevated troponins. He was subsequently transferred to [facility] for escalation of care. Patient underwent cardiac catheterization with Dr. Harris on 07/05/21 which revealed 80-90% stenosis in the mid portion within the previously placed stent, PLV 70% stenosis, PDA 30-40% stenosis, LAD 35% mid lesion no significant stenosis, left circumflex high obtuse marginal has 80% stenosis, circumflex is totally occluded after that. Patient underwent successful stent to in-stent lesion of mid RCA. Echocardiogram revealed EF 45-50%, mild aortic valve regurgitation, mild mitral regurgitation, mild tricuspid regurgitation 07/08/21. Patient seen and examined at bedside, no acute distress. Ambulating in room without difficulty. He has no complaints. He denies any chest pain, shortness of breath, lightheadedness, dizziness. Overnight SBP 140s-150s. Blood pressure 150/75 , HR 73, afebrile, maintaining saturations on room air. Patient currently maintained on Aspirin 81mg daily, atorvastatin 80mg daily, Plavix 75mg daily, Imdur 60mg daily, Lisinopril 20 daily and carvedilol 6.25mg BID. PHYSICAL EXAMINATION: This is a 75-year-old L in no apparent distress at the time of my examination. HEENT: Neck is supple. There is no jugular venous distention. CHEST EXAMINATION: Lungs are clear to auscultation bilaterally. HEART EXAMINATION: Heart regular rate and rhythm. S1, S2 heard. No murmurs, gallops or rub. ABDOMEN: Soft, nontender. Bowel sounds are heard. No organomegaly noted. EXTREMITIES: 2+ peripheral pulses and no calf tenderness noted. No edema SKIN: Right radial cath site, clean dry intact, 2+ pulses NEUROLOGIC EXAMINATION: Patient is awake, alert and oriented x3. FINAL ASSESSMENT AND PLAN: NSTEMI s/p PCI to RCA on 07/02 Ischemic cardiomyopathy History of coronary artery disease, prior stenting approximately 15 years prior History of hypertension History of diabetes Dementia History of gastric ulcers, bleeding on clopidogrel per patient's . PLAN: Continue dual antiplatelet therapy with aspirin and plavix Continue statin, Coreg 6.25mg BID , Lisinopril 20mg daily, and Imdur From a cardiology perspective, patient is stable to be discharged home. Patient to follow up outpatient in the office in 1 week. The patient has been seen and evaluated. Plan of care has been reviewed and agreed upon by Dr Frias. Objective - Vital Signs Vital signs: Vital Signs Temp 97.8 F 07/08/21 08:08 Pulse 66 07/08/21 08:08 Resp 16 07/08/21 08:08 BP 180/92 07/08/21 08:08 Pulse Ox 98 07/08/21 08:08 Intake & Output 07/07/21 07/08/21 07/08/21 18:59 06:59 18:59 Intake Total 960 240 Output Total 350 Balance 610 240 Weight 102.6 kg Intake: Oral 960 240 Output: Urine 350 Other: # Voids 4 1 # Bowel Movements 1 - Labs CBC & Chem 7: 07/06/21 07:32 07/06/21 07:32 Labs: Abnormal Lab Results - Last 24 Hours (Table) 07/07/21 07/07/21 Range/Units 11:33 20:18 POC Glucose (mg/dL) 65 L 112 H (75-99) mg/dL
[2021-07-08 11:58] LABS: Glucose,Whole Blood 96 mg/dL (75-99)
[2021-07-08 12:45] VITALS: BP 136/76
--- NOTE | 2021-07-09 00:56 | P.DS ---
Providers Date of admission: 07/05/21 06:09 Attending physician: Mj Maya Consults: 07/05/21 06:09 Consult Physician Urgent Consulting Provider: Kateryna Morales Consult Reason/Comments: nstemi Do you want consulting provider notified?: Yes Primary care physician: Sheila [facility] Course: Diagnoses: None STEMI status post PCI and stent stent placement to the in-stent lesion of the mid RCA on 07/05 Ischemic cardiomyopathy with ejection fraction 45-50% with no overt signs and symptoms of systolic CHF dementia with memory problem, patient is at baseline Mild leukocytosis, reactive, no overt signs and symptoms of infection. Follow- up as an outpatient Hospital course: This is a pleasant 75 years old male with multiple medical problems presents with chest pain found to have none STEMI, he is been evaluated by entomology teacher and stent was placed to his previous stent and his RCA by cardiology team on 07/05. After the procedure patient was doing well. He was walking in the room with no problem. He denies chest pain or dyspnea or nausea or vomiting. He had some memory problem with looks like his baseline, at bedside confirmed that this is baseline. And she is agreeable to that he can go home Importance of epigastric treatment with aspirin and Plavix are explained extensively to the patient and Patient was informed about mild leukocytosis and recommended that she follow up with PCP in one to 2 days to check his blood including one cell count and she agrees Patient was cleared for discharge by entomology teacher Problems and management plan were discussed with the patient and he verbalized understanding and acceptance Patient was found stable and can be discharged home however he needs follow-up as an outpatient. Patient was instructed to follow up with PCP within one week and patient agrees Patient and agree with the appointments made for him with Dr. Tapia entomology teacher on 07/[address] Jaquez his PCP on 07/10 stated they will follow- up Physical exam Gen: patient is a AAOx3, no distress CVS: S1-S2, RRR, no murmur Lungs: B/L CTA, no wheezing Abdomen: soft, no distention, no tenderness, positive bowel sounds Extremity: no leg edema or induration Time spent more than 35 minutes Patient Condition at Discharge: Serious Plan - Discharge Summary New Discharge Prescriptions: New Atorvastatin [Lipitor] 80 mg PO DAILY 30 Days #30 tab Clopidogrel [Plavix] 75 mg PO DAILY 30 Days #30 tab Aspirin 81 mg PO DAILY chew carvediloL [Coreg] 6.25 mg PO BID-W/MEALS 30 Days #60 tab lisinopriL [Zestril] 20 mg PO DAILY 30 Days #30 tab Continue Sucralfate [Carafate] 1 gm PO ACHS Isosorbide Mononitrate ER [Imdur] 60 mg PO DAILY glipiZIDE [Glucotrol] 2.5 mg PO AC-BRKFST Nitroglycerin Sl Tabs [Nitrostat] 0.4 mg SL Q5M PRN PRN Reason: Chest Pain Omeprazole/Sodium Bicarbonate [Zegerid 20 mg Capsule] 1 cap PO DAILY Donepezil [Aricept] 10 mg PO DAILY Tamsulosin [Flomax] 0.8 mg PO DAILY Discontinued Atorvastatin [Lipitor] 20 mg PO DAILY Lisinopril [Zestril] 10 mg PO DAILY Discharge Medication List Isosorbide Mononitrate ER [Imdur] 60 mg PO DAILY 05/29/16 [History] Sucralfate [Carafate] 1 gm PO ACHS 05/29/16 [History] Nitroglycerin Sl Tabs [Nitrostat] 0.4 mg SL Q5M PRN 07/04/20 [History] Omeprazole/Sodium Bicarbonate [Zegerid 20 mg Capsule] 1 cap PO DAILY 07/04/20 [History] glipiZIDE [Glucotrol] 2.5 mg PO AC-BRKFST 07/04/20 [History] Donepezil [Aricept] 10 mg PO DAILY 07/05/21 [History] Tamsulosin [Flomax] 0.8 mg PO DAILY 07/05/21 [History] Atorvastatin [Lipitor] 80 mg PO DAILY 30 Days #30 tab 07/07/21 [Rx] Clopidogrel [Plavix] 75 mg PO DAILY 30 Days #30 tab 07/07/21 [Rx] Aspirin 81 mg PO DAILY chew 07/08/21 [Rx] carvediloL [Coreg] 6.25 mg PO BID-W/MEALS 30 Days #60 tab 07/08/21 [Rx] lisinopriL [Zestril] 20 mg PO DAILY 30 Days #30 tab 07/08/21 [Rx] Follow up Appointment(s)/Referral(s): Andrew Frias MD [STAFF PHYSICIAN] - 07/16/21 3:00 pm ([address] Location) Sheila Huang DO [Primary Care Provider] - 07/10/21 2:30 pm (We recommend to check your blood test including your white blood cell with your Doctor) Patient Instructions/Handouts: Heart Healthy Diet (GEN), After Radial Heart Catheterization (GEN) Activity/Diet/Wound Care/Special Instructions: heart healthy diet activity is restricted till you see your doctor Discharge Disposition: HOME SELF-CARE
== END 2021-07-08 13:29 | disposition home or self-care (01) | DRG 247 ==
LOC: EC 04:31 → 3SCARD 06:09
PROVIDERS: ADMIT Hospitalist; ATTEND Hospitalist
PROC: B2111ZZ Fluoroscopy of Multiple Coronary Arteries using Low Osmolar Contrast (ICD-10-PCS; 2021-07-05)
PROC: B2151ZZ Fluoroscopy of Left Heart using Low Osmolar Contrast (ICD-10-PCS; 2021-07-05)
PROC: 027034Z Dilation of Coronary Artery, One Artery with Drug-eluting Intraluminal Device, Percutaneous Approach (ICD-10-PCS; principal; 2021-07-05 10:18)
PROC: 4A023N7 Measurement of Cardiac Sampling and Pressure, Left Heart, Percutaneous Approach (ICD-10-PCS; 2021-07-05 10:18)
DX: I21.4 Non-ST elevation (NSTEMI) myocardial infarction (principal); T82.855A Stenosis of coronary artery stent, initial encounter; I25.10 Atherosclerotic heart disease of native coronary artery without angina pectoris; E11.9 Type 2 diabetes mellitus without complications; I25.5 Ischemic cardiomyopathy; I10 Essential (primary) hypertension; J44.9 Chronic obstructive pulmonary disease, unspecified; D72.829 Elevated white blood cell count, unspecified; R00.1 Bradycardia, unspecified; E66.9 Obesity, unspecified; R00.0 Tachycardia, unspecified; I08.3 Combined rheumatic disorders of mitral, aortic and tricuspid valves; Z68.33 Body mass index [BMI] 33.0-33.9, adult; F03.90 Unspecified dementia, unspecified severity, without behavioral disturbance, psychotic disturbance, mood disturbance, and anxiety; Y71.2 Prosthetic and other implants, materials and accessory cardiovascular devices associated with adverse incidents; Z79.01 Long term (current) use of anticoagulants; Z79.02 Long term (current) use of antithrombotics/antiplatelets; Z79.82 Long term (current) use of aspirin; Z79.84 Long term (current) use of oral hypoglycemic drugs; Z79.899 Other long term (current) drug therapy; Z85.46 Personal history of malignant neoplasm of prostate; Z87.11 Personal history of peptic ulcer disease; Z88.8 Allergy status to other drugs, medicaments and biological substances; Z88.6 Allergy status to analgesic agent
CPT/HCPCS: 36415; 80048; 80053; 80061; 81003; 82550; 83735; 83880; 84100; 84484; 85025; 85610; 85730; 93005; 93306; 93458; 94760; 96360; 96361; 99291